=== PATIENT | male | born 1990 | race Caucasian/White ===

== ENCOUNTER 2018-08-13 14:51 | Emergency (ER) | payer OTHER, BC ==
[2018-08-13] MEDS: KETOROLAC 60 MG INJ IM (16:02)
== END 2018-08-13 16:15 | disposition home or self-care (01) ==
LOC: FTE 14:51
DX: M54.5 Low back pain (principal); Z87.891 Personal history of nicotine dependence
CPT/HCPCS: 96372; 99284-25; J1885